=== PATIENT | male | born 1960 | race Caucasian/White ===

== ENCOUNTER 2018-04-21 11:05 | Emergency (ER) | payer OTHER ==
[2018-04-21] MEDS: Ketorolac 60 MG/2 ML SDV IM ONE (12:04)
[2018-04-21] MEDS: Acetaminophen/HYDROcodone 325-10 MG Tab PO ONE (12:26)
[2018-04-21] MEDS ORDERED: Acetaminophen/HYDROcodone 325-5 MG Tab ONE (12:30)
--- NOTE | 2018-04-21 14:02 | EDM.PDOC ---
ED HPI GENERAL MEDICAL PROBLEM - General Chief Complaint: General Stated Complaint: Pain at back of Right Knee Time Seen by Provider: 04/21/18 12:05 Source of Information: Reports: Patient History Limitations: Reports: No Limitations - History of Present Illness INITIAL COMMENTS - FREE TEXT/NARRATIVE: Patient is a 57 year old man who was jumping on the trampoline last night with his and 14 year old daughter. He thinks he twisted his right knee and now it is very sore and mildly swollen. He cannot straighten it out or move it through the full ROM. It does not lock or give out on him. He can still walk on it but it is very sore when he does. Onset: Today Onset Date: 04/21/18 Onset Time: 07:00 Duration: Hour(s): (5) Location: Reports: Lower Extremity, Right Quality: Reports: Ache, Throbbing Severity: Severe Improves with: Reports: Immobilization, Medication Worsens with: Reports: Movement Context: Reports: Activity (Trampolining last night and twisted knee a bit.) Associated Symptoms: Reports: No Other Symptoms ED ROS GENERAL - Review of Systems Review Of Systems: See Below Constitutional: Reports: No Symptoms HEENT: Reports: No Symptoms Respiratory: Reports: No Symptoms Cardiovascular: Reports: No Symptoms Endocrine: Reports: No Symptoms GI/Abdominal: Reports: No Symptoms : Reports: No Symptoms Musculoskeletal: Reports: Joint Pain (Right Knee), Joint Swelling (Right knee) Skin: Reports: No Symptoms Neurological: Reports: No Symptoms Psychiatric: Reports: No Symptoms Hematologic/Lymphatic: Reports: No Symptoms Immunologic: Reports: No Symptoms ED EXAM, GENERAL - Physical Exam Exam: See Below Exam Limited By: No Limitations General Appearance: Alert, WD/WN, No Apparent Distress Eye Exam: Bilateral Eye: EOMI, Normal Fundi, Normal Inspection, PERRL Ears: Normal External Exam, Normal Canal, Hearing Grossly Normal, Normal TMs Ear Exam: Bilateral Ear: Auricle Normal, Canal Normal, TM normal Nose: Normal Inspection, Normal Mucosa, No Blood Throat/Mouth: Normal Inspection, Normal Lips, Normal Teeth, Normal Gums, Normal Oropharynx, Normal Voice, No Airway Compromise Head: Atraumatic, Normocephalic Neck: Normal Inspection, Supple, Non-Tender, Full Range of Motion Respiratory/Chest: No Respiratory Distress, Lungs Clear, Normal Breath Sounds, No Accessory Muscle Use, Chest Non-Tender Cardiovascular: Normal Peripheral Pulses, Regular Rate, Rhythm, No Edema, No Gallop, No JVD, No Murmur, No Rub Extremities: Joint Swelling (1-2 plus effusion with pain.), Limited Range of Motion (Right knee), Other (Right knee x-ray appears normal on initial exam.) Neurological: Alert, Oriented, CN II-XII Intact, Normal Cognition, Normal Gait, Normal Reflexes, No Motor/Sensory Deficits Psychiatric: Normal Affect, Normal Mood Skin Exam: Warm, Dry, Intact, Normal Color, No Rash Lymphatic: No Adenopathy Course - Vital Signs Text/Narrative:: Unremarkable ED course. His x-ray was negative on my initial exam. The knee was put into a knee immobilizer and it felt much better. He was also given Toradol 60 mg IM and Lortab 10/325 mg and that also relieved his pain quite a bit. He will ice the knee bid, rest, elevate and will wear the knee immobilizer. He will see Dr. Wilson or an orthopedist early next week if the pain does not resolve. - Orders/Labs/Meds Orders: Active Orders 24 hr Category Date Time Status Knee 3V Rt [CR] Stat Exams 04/21/18 12:09 Taken Meds: Medications Discontinued Medications Generic Name Dose Route Start Last Admin Trade Name Marino PRN Reason Stop Dose Admin Hydrocodone Bitart/Acetaminophen 1 tab 04/21/18 12:26 Lyons 325-10 Mg PO 04/21/18 12:27 ONETIME ONE Ketorolac Tromethamine 60 mg 04/21/18 12:10 04/21/18 12:04 Toradol IM 04/21/18 12:11 60 mg ONETIME ONE Administration Departure - Departure Time of Disposition: 14:10 Disposition: Home, Self-Care 01 Condition: Good Clinical Impression: Knee sprain - Discharge Information Instructions: Knee Pain, Adult Forms: ED Department Discharge Additional Instructions: take Lyons every 4-6 hours as needed for pain - My Orders Last 24 Hours: My Active Orders 04/21/18 12:09 Knee 3V Rt [CR] Stat - Assessment/Plan Last 24 Hours: My Active Orders 04/21/18 12:09 Knee 3V Rt [CR] Stat
--- NOTE | 2018-04-22 11:50 | CR ---
DATE OF SERVICE: 04/21/18 CLINICAL DATA: Right knee pain and swelling RIGHT KNEE: No acute fracture or dislocation. No lytic or blastic bone lesions. No joint effusion. [id number] [facility]
== END 2018-04-21 13:34 | disposition home or self-care (01) ==
LOC: LB.ED 11:05
DX: S86.911A Strain of unspecified muscle(s) and tendon(s) at lower leg level, right leg, initial encounter (principal); Y93.44 Activity, trampolining; X50.1XXA Overexertion from prolonged static or awkward postures, initial encounter
CPT/HCPCS: 73562; 96372; 99283; A9270; J1885